=== PATIENT | female | born 1980 | race Caucasian/White ===

== ENCOUNTER → 2017-03-04 | Outpatient (CLI) | payer OTHER ==
[~2017-03-04] MED LIST: AGM875 PO; CLTP PO; COEN75CA PO; DOCO1CAP10; MULT-506 PO; SERT25TA PO
== END | disposition home or self-care (01) ==
LOC: C.LAB 08:36
PROVIDERS: ATTEND Nutritionist
DX: R53.83 Other fatigue (principal)

== ENCOUNTER → 2017-05-20 | Outpatient (CLI) | payer OTHER | END | disposition home or self-care (01) | LOC: C.LABSPEC 16:14 | PROVIDERS: ATTEND Obstetrics & Gynecology | DX: Z01.419 Encounter for gynecological examination (general) (routine) without abnormal findings (principal) ==